=== PATIENT | male | born 1955 | race Caucasian/White ===

== ENCOUNTER 2018-08-07 22:05 | Emergency (ER) | payer OTHER ==
[2018-08-07] MEDS: ONDANSETRON 4 MG INJ IV (22:36)
[2018-08-07] MEDS: morphine 4 MG/ML VIAL IV (22:36)
[2018-08-07] MEDS: DIPHTH/TET/ACEL PERTUSS (ADULT) 0.5 ML VIAL IM* (22:38)
[2018-08-08] MEDS: HYDROmorphONE 0.5 MG/0.5 ML SYG IV (00:34)
== END 2018-08-08 01:24 | disposition home or self-care (01) ==
LOC: E/R 22:05
DX: S01.81XA Laceration without foreign body of other part of head, initial encounter (principal); S82.302A Unspecified fracture of lower end of left tibia, initial encounter for closed fracture; S82.442A Displaced spiral fracture of shaft of left fibula, initial encounter for closed fracture; I10 Essential (primary) hypertension; W18.39XA Other fall on same level, initial encounter; Y92.009 Unspecified place in unspecified non-institutional (private) residence as the place of occurrence of the external cause; Z23 Encounter for immunization
CPT/HCPCS: 12013; 70450; 73590; 90471; 90715; 96374; 96375; 99285-25